=== PATIENT | female | born 1990 | race Caucasian/White ===

== ENCOUNTER 2021-04-04 03:13 | Emergency (ER) | payer OTHER ==
[~2021-04-04] VITALS: Ht 165.1 cm; Wt 102.1 kg
[2021-04-04] MEDS ORDERED: RESTORIL30 M1 (03:28)
[2021-04-04] MEDS ORDERED: ATIVAN1 M1 (03:28)
== END 2021-04-04 04:56 | disposition home or self-care (01) ==
LOC: ER 03:13
DX: H60.8X1 Other otitis externa, right ear (principal)

== ENCOUNTER 2021-07-19 15:48 | Emergency (ER) | payer OTHER ==
[~2021-07-19] VITALS: Ht 160 cm; Wt 104.3 kg
[~2021-07-19 15:48] MED LIST: ATIVAN1 M1; RESTORIL30 M1
[2021-07-19] MEDS ORDERED: ZITHROMAX500 MG PO (18:03)
== END 2021-07-19 18:32 | disposition home or self-care (01) ==
LOC: ER 15:48
DX: J06.9 Acute upper respiratory infection, unspecified (principal); B34.9 Viral infection, unspecified; Z03.818 Encounter for observation for suspected exposure to other biological agents ruled out

== ENCOUNTER 2021-09-18 16:01 | Emergency (ER) | payer OTHER ==
[~2021-09-18] VITALS: Ht 165.1 cm; Wt 104.3 kg
[~2021-09-18 16:01] MED LIST changes: +ZITHROMAX500 MG PO
[2021-09-18] MEDS ORDERED: PROTONIX20 MG (16:20)
[2021-09-18] MEDS ORDERED: KETO10TA2 PO (19:03)
[2021-09-18] MEDS ORDERED: NORFLEX100MG PO (19:03)
== END 2021-09-18 19:58 | disposition home or self-care (01) ==
LOC: ER 16:01
DX: M54.50 Low back pain, unspecified (principal)

== ENCOUNTER 2021-10-02 22:45 | Emergency (ER) | payer OTHER ==
[~2021-10-02] VITALS: Ht 157.5 cm; Wt 111.1 kg
[~2021-10-02 22:45] MED LIST changes: +KETO10TA2 PO; +NORFLEX100MG PO; +PROTONIX20 MG
[2021-10-03] MEDS ORDERED: PEPCID AC20 MG PO (03:06)
[2021-10-03] MEDS ORDERED: NAPROXEN375 MG PO (03:06)
[2021-10-03] MEDS ORDERED: ZOFRAN4 MG PO (03:06)
[2021-10-03] MEDS ORDERED: LEVOTHYROXINE25 MCG PO (03:06)
== END 2021-10-03 03:16 | disposition home or self-care (01) ==
LOC: ER 22:45
DX: N92.0 Excessive and frequent menstruation with regular cycle (principal); E03.9 Hypothyroidism, unspecified

== ENCOUNTER 2022-01-03 10:03 | Emergency (ER) | payer OTHER ==
[~2022-01-03] VITALS: Ht 165.1 cm; Wt 104.3 kg
[~2022-01-03 10:03] MED LIST changes: +LEVOTHYROXINE25 MCG PO; +NAPROXEN375 MG PO; +PEPCID AC20 MG PO; +ZOFRAN4 MG PO
== END 2022-01-03 17:39 | disposition home or self-care (01) ==
LOC: ER 10:03
DX: R10.2 Pelvic and perineal pain (principal); Z88.6 Allergy status to analgesic agent

== ENCOUNTER 2022-02-18 10:58 | Emergency (ER) | payer OTHER ==
[~2022-02-18] VITALS: Ht 165.1 cm; Wt 100.7 kg
[2022-02-18] MEDS ORDERED: AMOXICILLIN500 M1 PO (12:44)
[2022-02-18] MEDS ORDERED: ULTRACET PO (12:44)
== END 2022-02-18 12:49 | disposition home or self-care (01) ==
LOC: ER 10:58
DX: Z98.818 Other dental procedure status (principal); Z88.6 Allergy status to analgesic agent; I10 Essential (primary) hypertension

== ENCOUNTER 2022-09-02 05:49 | Emergency (ER) | payer OTHER ==
[~2022-09-02] VITALS: Ht 165.1 cm; Wt 86.6 kg
[~2022-09-02 05:49] MED LIST changes: +AMOXICILLIN500 M1 PO; +ULTRACET PO
== END 2022-09-02 10:39 | disposition home or self-care (01) ==
LOC: ER 05:49
DX: J06.9 Acute upper respiratory infection, unspecified (principal); J45.901 Unspecified asthma with (acute) exacerbation; Z88.6 Allergy status to analgesic agent; Z20.822 Contact with and (suspected) exposure to COVID-19

== ENCOUNTER 2022-12-02 09:10 | Inpatient (IN) | payer OTHER ==
[~2022-12-02] VITALS: Ht 165.1 cm; Wt 80.3 kg
--- NOTE | 2022-12-02 09:28 | NUR ---
PACIENTE FEMINA REFIERE SENTIR ABULTAMIENTO EN ABDOMEN Y DOLOR QUE IRRADIA A CUADRANTE INFERIOR DONTAE. PACIENTE ALERTA Y ORIENTADO POR 3.
--- NOTE | 2022-12-02 10:43 | NUR ---
PACIENTE EVALUADA POR EL A QUIEN ORDENA TRATAMIENTO MEDICO. SE REALIZAN MUESTRAS BAJO MEDIDAS ASEPTICAS.SE ADMINISTRA MEDICAMENTOS BARAK ORDEN. SE ORIENTA SOBRE CT PO/IV.
== END 2022-12-04 12:41 | disposition home or self-care (01) | DRG 355 ==
LOC: ER 09:10 → MEDI 18:28
PROVIDERS: ADMIT Internal Medicine; ATTEND Internal Medicine
PROC: 0WUF4JZ Supplement Abdominal Wall with Synthetic Substitute, Percutaneous Endoscopic Approach (ICD-10-PCS; principal; 2022-12-02)
PROC: BW21ZZZ Computerized Tomography (CT Scan) of Abdomen and Pelvis (ICD-10-PCS; 2022-12-03)
DX: K43.6 Other and unspecified ventral hernia with obstruction, without gangrene (principal); Z20.822 Contact with and (suspected) exposure to COVID-19

== ENCOUNTER 2024-06-08 11:38 | Emergency (ER) | payer OTHER ==
[~2024-06-08] VITALS: Ht 167.6 cm; Wt 75.7 kg
[2024-06-08] MEDS ORDERED: KETOROLAC TROMETHAMINE 30 MG VIAL IM STA (13:44)
[2024-06-08] MEDS ORDERED: ORPHENADRINE CITRATE 30 MG/ML AMPUL IM STA (13:45)
[2024-06-08] MEDS ORDERED: KETOROLAC TROMETHAMINE 30 MG VIAL ONE (13:53)
[2024-06-08] MEDS ORDERED: ORPHENADRINE CITRATE 30 MG/ML AMPUL ONE (13:53)
== END 2024-06-08 17:09 | disposition home or self-care (01) ==
LOC: ER 11:38
DX: M54.31 Sciatica, right side (principal); Z88.6 Allergy status to analgesic agent